=== PATIENT | female | born 1970 ===

== ENCOUNTER 2019-12-12 00:25 | Emergency (ER) | payer OTHER ==
--- NOTE | 2019-12-12 01:03 | EDM.PDOC ---
ED HPI GENERAL MEDICAL PROBLEM - General Chief Complaint: General Stated Complaint: NUMBNESS IN ARMS Time Seen by Provider: 12/12/19 00:35 Source of Information: Reports: Patient - History of Present Illness INITIAL COMMENTS - FREE TEXT/NARRATIVE: CC paresthesias HPI: This is a 49-year-old female who awoke from sleep with paresthesias in both her arms and feeling lightheaded. No chest pain no shortness of breath nausea vomiting fever chills constipation diarrhea cough headache blurry vision or slurred speech PMHX/PSHX: Negative Social History: Negative for tobacco, negative for alcohol, negative for street drugs or marijuana Family history: Hypertension ROS: see chart PE: VS afebrile vital signs stable General: No apparent distress Head: Atraumatic normocephalic no lumps bumps or bruises Eyes: EOMI PERRLA Ears: TMs intact no hemotympanum no signs of infection no mastoid tenderness Nose: No epistaxis nares patent no septal wall hematoma Throat: No pharyngeal erythema or exudate no tonsillar enlargement Neck: Supple, no cervical lymphadenopathy Chest wall: No point tenderness Heart: Regular rate and rhythm without murmur gallop or rub Lungs: Clear to auscultation and percussion without rales rhonchi or wheeze Abdomen: Soft nontender nondistended without guarding rigidity or rebound Neck: No spinal point tenderness full range of motion in all 6 directions Back: No spinal paraspinal or CVA tenderness Extremities: full rom through out. no effusions skin: Warm dry intact no rashes neurologic: cranial nerves II through XII intact. No focal motor or sensory deficits noted MDM: Differential diagnosis: Electrolyte abnormality CVA arrhythmia ED course: Neurologic exam was entirely normal with an NIH of 0. No signs of a CVA. EKG was unremarkable. Blood work shows allergies. I wonder if this patient had night terrors were some paresthesias of sleeping on her arms. Either way she is asymptomatic at this time I do not see any evidence of any emergency. Patient stable for discharge Diagnosis: Paresthesias Disposition: Home Abdominal Pain Score (Numeric/FACES): 3 - Related Data Allergies Allergy/AdvReac Type Severity Reaction Status Date / Time No Known Allergies Allergy Verified 12/12/19 01:12 Home Meds: Home Meds . [No Known Home Meds] 12/12/19 [History] Past Medical History - Past Health History Medical/Surgical History: Denies Medical/Surgical History HEENT History: Reports: Impaired Vision Other HEENT History: wears glasses. Hoarse voice- vocal cords ok under direct vision by Dr Mooney. 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: Musculoskeletal History: Reports: None Neurological History: Reports: None Psychiatric History: Reports: None Endocrine/Metabolic History: Reports: None Hematologic History: Reports: None Immunologic History: Reports: None Oncologic (Cancer) History: Reports: None Dermatologic History: Reports: None - Infectious Disease History Infectious Disease History: Reports: Chicken Pox - Past Surgical History Head Surgeries/Procedures: Reports: None Cardiovascular Surgical History: Reports: None Respiratory Surgical History: Reports: None GI Surgical History: Reports: None Female Surgical History: Reports: None Endocrine Surgical History: Reports: None Neurological Surgical History: Reports: None Musculoskeletal Surgical History: Reports: None Dermatological Surgical History: Reports: None Social & Family History - Family History Family Medical History: Noncontributory - Tobacco Use Smoking Status *Q: Never Smoker - Caffeine Use Caffeine Use: Reports: Coffee, Soda - Recreational Drug Use Recreational Drug Use: No ED ROS GENERAL - Review of Systems Review Of Systems: Comprehensive ROS is negative, except as noted in HPI. ED EXAM, GENERAL - Physical Exam Exam: See Below Free Text/Narrative:: See my dictation Course - Vital Signs Last Recorded V/S: Last Vital Signs Temp 36.4 C 12/12/19 00:29 Pulse 76 12/12/19 00:29 Resp 18 12/12/19 00:29 BP 179/78 H 12/12/19 00:29 Pulse Ox 97 12/12/19 00:29 - Orders/Labs/Meds Orders: Active Orders 24 hr Category Date Time Status EKG Documentation Completion [RC] STAT Care 12/12/19 00:40 Active Labs: Laboratory Tests 12/12/19 12/12/19 Range/Units 00:53 00:53 WBC 7.68 (4.0-11.0) K/uL RBC 4.68 (4.30-5.90) M/uL Hgb 13.3 (12.0-16.0) g/dL Hct 37.8 (36.0-46.0) % MCV 80.8 (80.0-98.0) fL MCH 28.4 (27.0-32.0) pg MCHC 35.2 (31.0-37.0) g/dL RDW Std Deviation 38.7 (28.0-62.0) fl RDW Coeff of Odalys 13 (11.0-15.0) % Plt Count 287 (150-400) K/uL MPV 11.10 (7.40-12.00) fL Neut % (Auto) 61.1 (48.0-80.0) % Lymph % (Auto) 27.9 (16.0-40.0) % [place] % (Auto) 8.3 (0.0-15.0) % Eos % (Auto) 2.2 (0.0-7.0) % Baso % (Auto) 0.5 (0.0-1.5) % Neut # (Auto) 4.7 (1.4-5.7) K/uL Lymph # (Auto) 2.1 (0.6-2.4) K/uL [place] # (Auto) 0.6 (0.0-0.8) K/uL Eos # (Auto) 0.2 (0.0-0.7) K/uL Baso # (Auto) 0.0 (0.0-0.1) K/uL Sodium 139 (136-145) mmol/L Potassium 3.4 L (3.5-5.1) mmol/L Chloride 104 (98-107) mmol/L Carbon Dioxide 28.7 (21.0-32.0) mmol/L BUN 9 (7.0-18.0) mg/dL Creatinine 1.1 H (0.6-1.0) mg/dL Est Cr Clr Drug Dosing 56.64 mL/min Estimated GFR (MDRD) 52.4 ml/min Glucose 93 (74-106) mg/dL Calcium 9.4 (8.5-10.1) mg/dL Departure - Departure Time of Disposition: 01:26 Disposition: Refer to Observation Clinical Impression: Paresthesias - Discharge Information Referrals: PCP,None [Primary Care Provider] - Forms: ED Department Discharge Additional Instructions: Follow-up with your primary care doctor as needed. Return if getting worse Sepsis Event Note - Evaluation Sepsis Screening Result: No Definite Risk - Focused Exam Vital Signs: Vital Signs Temp Pulse Resp BP Pulse Ox 12/12/19 00:29 36.4 C 76 18 179/78 H 97 Date Exam was Performed: 12/12/19 Time Exam was Performed: 01:25 - My Orders Last 24 Hours: My Active Orders 12/12/19 00:40 EKG Documentation Completion [RC] STAT - Assessment/Plan Last 24 Hours: My Active Orders 12/12/19 00:40 EKG Documentation Completion [RC] STAT
[2019-12-12 01:12] LABS: CARBON DIOXIDE,CO2 28.7 mmol/L (21.0-32.0); POTASSIUM,K 3.4 mmol/L (3.5-5.1)
[2019-12-12 01:50] VITALS: BP 121/68; PULSE 72
== END 2019-12-12 01:40 | disposition other institution (70) ==
LOC: MW.ED 00:25
DX: R20.2 Paresthesia of skin (principal)
CPT/HCPCS: 36415; 80048; 85025; 93005; 99283; 99285-25

== ENCOUNTER 2024-10-10 10:11 | Emergency (ER) | payer OTHER | END 2024-10-10 10:29 | disposition left against medical advice (07) | LOC: MW.ED 10:11 | DX: Z53.21 Procedure and treatment not carried out due to patient leaving prior to being seen by health care provider (principal) ==